=== PATIENT | male | born 1985 | race American Indian/Alaskan Native ===

== ENCOUNTER 2017-12-08 20:14 | Emergency (ER) | payer OTHER ==
[2017-12-08] MEDS ORDERED: BENADRYL PO ONE ×2 (20:50→21:05)
[2017-12-08] MEDS ORDERED: DECADRON ONE (20:51)
[2017-12-08] MEDS ORDERED: PEPCID ONE (20:51)
[2017-12-08] MEDS ORDERED: PEPCID PO ONE (21:07)
[2017-12-08] MEDS ORDERED: DECADRON IM ONE (21:07)
--- NOTE | 2017-12-09 01:49 | Emergency Department Report ---
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 Patient denies shortness of breath or chest pain patient states has intermittent only with exact generally resolved with prednisone and albuterol and emolient ED Past Medical Hx - Past Medical History Hx HIV: Yes Additional medical history: Obesity - Surgical History Past Surgical History?: No - Social History Smoking Status: Current Every Day Smoker Substance Use Type: None - Medications Home Medications: Home Medications Medication Instructions Recorded Confirmed Last Taken Type Dexamethasone [Decadron] 4 mg PO Q12H PRN #4 tablet 12/09/17 Unknown Rx EPINEPHrine [Epipen 2-Wilmer] 0.3 mg IJ PRN PRN #1 auto.injct 12/09/17 Unknown Rx Metoclopramide [Reglan] 10 mg PO ACHS #30 tablet 12/09/17 Unknown Rx Triamcinolone Aceton 0.1% (Nf) 1 applic TP BID #1 tube 12/09/17 Unknown Rx [Kenalog (NF)] diphenhydrAMINE [Benadryl CAP] 25 mg PO Q6HR PRN #30 capsule 12/09/17 Unknown Rx ED Review of Systems ROS: Stated complaint: ALLERGIC REACTION Other details as noted in HPI Constitutional: malaise. denies: chills, fever Eyes: denies: eye pain, eye discharge, vision change ENT: denies: ear pain, throat pain Respiratory: denies: cough, shortness of breath, wheezing Cardiovascular: denies: chest pain, palpitations Endocrine: no symptoms reported Gastrointestinal: denies: abdominal pain, nausea, diarrhea Genitourinary: denies: urgency, dysuria Musculoskeletal: denies: back pain, joint swelling, arthralgia Skin: rash, lesions, pruritus, other Neurological: denies: headache, weakness, paresthesias, abnormal gait, vertigo Psychiatric: auditory hallucinations, visual hallucinations, homicidal thoughts. denies: anxiety, depression, suicidal thoughts, other Hematological/Lymphatic: denies: easy bleeding, easy bruising Physical Exam - Physical Exam Vital Signs: Vital Signs 12/08/17 20:57 Temperature 98.7 F Pulse Rate 100 H Respiratory 18 Rate Blood Pressure 170/100 O2 Sat by Pulse 100 Oximetry General: pt is a/o x 3 with nad, no resp distress appear nontoxic Physical Exam: Mild hives to bilateral arms minimal pruritus . Midline airway is patent uvula is midline there's no exudate minimal swelling there is no back pain or shortness of breath is no chest wall tenderness no chills no fevers lungs are clear bilaterally no stridor no there is no respiratory distress ED Course Vital Signs 12/08/17 20:57 Temperature 98.7 F Pulse Rate 100 H Respiratory 18 Rate Blood Pressure 170/100 O2 Sat by Pulse 100 Oximetry - Reevaluation(s) Reevaluation #1: Benadryl ibuprofen 12/09/17 01:51 ED Medical Decision Making - Radiology Data Symptoms are improved with steroids and antihistamines plan DC the Decadron by mouth Pepcid by mouth Reglan by mouth patient initiated EpiPen patient will avoid contacts for known triggers with PCP as directed - Medical Decision Making This is a contact dermatitis plan Ativan patient given EpiPen teaching Decadron Benadryl Reglan patient will follow with PCP N2 to 3 days return to work upon clearance. Critical care attestation.: If time is entered above; I have spent that time in minutes in the direct care of this critically ill patient, excluding procedure time. ED Disposition Clinical Impression: Contact dermatitis Qualifiers: Contact dermatitis type: allergic Contact dermatitis trigger: other trigger Qualified Code(s): L23.89 - Allergic contact dermatitis due to other agents; L23.8 - Allergic contact dermatitis due to other agents Disposition: DC-01 TO HOME OR SELFCARE Is pt being admited?: No Does the pt Need Aspirin: No Condition: Good Instructions: Epinephrine (Injection) Prescriptions: Dexamethasone [Decadron] 4 mg PO Q12H PRN #4 tablet PRN Reason: allergic reaction diphenhydrAMINE [Benadryl CAP] 25 mg PO Q6HR PRN #30 capsule PRN Reason: itching allergies EPINEPHrine [Epipen 2-Wilmer] 0.3 mg IJ PRN PRN #1 auto.injct PRN Reason: severe allergic reaction Metoclopramide [Reglan] 10 mg PO ACHS #30 tablet Triamcinolone Aceton 0.1% (Nf) [Kenalog (NF)] 1 applic TP BID #1 tube Referrals: PRIMARY CARE, [Primary Care Provider] - 3-5 Days Forms: Work/School Release Form(ED) Time of Disposition: 02:18
[2017-12-09 01:57] VITALS: BP 139/93
== END 2017-12-09 02:40 | disposition home or self-care (01) ==
LOC: ED 20:14
DX: L25.9 Unspecified contact dermatitis, unspecified cause (principal); F17.200 Nicotine dependence, unspecified, uncomplicated; R44.0 Auditory hallucinations; R44.1 Visual hallucinations; Z21 Asymptomatic human immunodeficiency virus [HIV] infection status
CPT/HCPCS: 96372; 99282; J1100

== ENCOUNTER 2020-02-16 11:54 | Emergency (ER) | payer SELFPAY | END 2020-02-16 13:00 | disposition left against medical advice (07) | LOC: ED 11:54 | DX: M25.541 Pain in joints of right hand (principal); Z53.21 Procedure and treatment not carried out due to patient leaving prior to being seen by health care provider ==

== ENCOUNTER 2020-08-25 11:44 | Emergency (ER) | payer OTHER ==
[2020-08-25 11:49] VITALS: BP 137/101
[2020-08-25] MEDS ORDERED: KETOROLAC 60 MG/2 ML INJ IM ONE (13:53)
[2020-08-25] MEDS ORDERED: predniSONE 20 MG TAB PO ONE (13:53)
--- NOTE | 2020-08-25 15:44 | Emergency Department Report ---
ED Back Pain/Injury HPI - General Chief Complaint: Back Pain/Injury Stated Complaint: BACK PAIN Time Seen by Provider: 08/25/20 13:44 Source: patient Limitations: No Limitations - History of Present Illness Initial Comments: This is a 35-year-old male nontoxic, well nourished in appearance, no acute signs of distress presents to the ED with c/o of acute on chronic lower back pa in. Patient stated that the past 2 days he was barbecuing and moving/heavy lifting and developed this pain. Patient states has history of sciatica nerve pain which is similar symptoms as today. Patient states that pain radiates through to his left lower extremity. Patient denies any trauma. Denies any bladder or bowel instability. Patient denies any urinary symptoms. Denies any fever, chills, nausea, vomiting, headache, stiff neck, chest pain or shortness of breath. Patient denies any numbness or tingling. Denies any allergies. Denies significant past medical history. MD Complaint: back pain -: days(s) Similar Symptoms Previously: Yes Place: home Radiation: left leg Severity: mild Severity scale (0 -10): 8 Quality: aching Consistency: intermittent Improves With: immobilization, sitting upright Worsens With: movement, walking Context: while lifting, turning/twisting Associated Symptoms: denies other symptoms. denies: confusion, weakness, chest pain, numbness, difficulty walking, cough, difficulty urinating, diaphoresis, incontinence, fever/chills, constipation, headaches, abdominal pain, loss of appetite, malaise, nausea/vomiting, rash, seizure, shortness of breath, syncope - Related Data Previous Rx's Medication Instructions Recorded Last Taken Type EPINEPHrine [Epipen 2-Wilmer] 0.3 mg IJ PRN PRN #1 auto.injct 12/09/17 Unknown Rx Metoclopramide [Reglan] 10 mg PO ACHS #30 tablet 12/09/17 Unknown Rx Triamcinolone Aceton 0.1% (Nf) 1 applic TP BID #1 tube 12/09/17 Unknown Rx [Kenalog (NF)] dexAMETHasone [Decadron] 4 mg PO Q12H PRN #4 tablet 12/09/17 Unknown Rx diphenhydrAMINE [Benadryl CAP] 25 mg PO Q6HR PRN #30 capsule 12/09/17 Unknown Rx Cyclobenzaprine [Flexeril] 10 mg PO QHS PRN #10 tablet 08/25/20 Unknown Rx Naproxen 500 mg PO Q12H PRN #12 tablet 08/25/20 Unknown Rx Allergies Allergy/AdvReac Type Severity Reaction Status Date / Time No Known Allergies Allergy Unverified 12/08/17 21:05 ED Review of Systems ROS: Stated complaint: BACK PAIN Other details as noted in HPI Comment: All other systems reviewed and negative Constitutional: denies: chills, fever Eyes: denies: eye pain, eye discharge, vision change ENT: denies: ear pain, throat pain Respiratory: denies: cough, shortness of breath, wheezing Cardiovascular: denies: chest pain, palpitations Endocrine: no symptoms reported Gastrointestinal: denies: abdominal pain, nausea, diarrhea Genitourinary: denies: urgency, dysuria Musculoskeletal: back pain. denies: joint swelling, arthralgia Skin: denies: rash, lesions Neurological: denies: headache, weakness, paresthesias Psychiatric: denies: anxiety, depression Hematological/Lymphatic: denies: easy bleeding, easy bruising ED Past Medical Hx - Past Medical History Previous Medical History?: Yes Hx Hypertension: Yes Hx HIV: Yes Additional medical history: Obesity - Surgical History Past Surgical History?: No - Social History Smoking Status: Current Every Day Smoker Substance Use Type: None - Medications Home Medications: Home Medications Medication Instructions Recorded Confirmed Last Taken Type EPINEPHrine [Epipen 2-Wilmer] 0.3 mg IJ PRN PRN #1 auto.injct 12/09/17 Unknown Rx Metoclopramide [Reglan] 10 mg PO ACHS #30 tablet 12/09/17 Unknown Rx Triamcinolone Aceton 0.1% (Nf) 1 applic TP BID #1 tube 12/09/17 Unknown Rx [Kenalog (NF)] dexAMETHasone [Decadron] 4 mg PO Q12H PRN #4 tablet 12/09/17 Unknown Rx diphenhydrAMINE [Benadryl CAP] 25 mg PO Q6HR PRN #30 capsule 12/09/17 Unknown Rx Cyclobenzaprine [Flexeril] 10 mg PO QHS PRN #10 tablet 08/25/20 Unknown Rx Naproxen 500 mg PO Q12H PRN #12 tablet 08/25/20 Unknown Rx ED Physical Exam - General Limitations: No Limitations General appearance: alert, in no apparent distress - Head Head exam: Present: atraumatic, normocephalic - Eye Eye exam: Present: normal appearance - Neck Neck exam: Present: normal inspection, full ROM. Absent: lymphadenopathy - Respiratory Respiratory exam: Present: normal lung sounds bilaterally. Absent: respiratory distress, wheezes, rales, rhonchi, stridor, chest wall tenderness, accessory muscle use, decreased breath sounds, prolonged expiratory - Cardiovascular Cardiovascular Exam: Present: regular rate, normal rhythm, normal heart sounds. Absent: bradycardia, tachycardia, irregular rhythm, systolic murmur, diastolic murmur, rubs, gallop - GI/Abdominal GI/Abdominal exam: Present: soft, normal bowel sounds. Absent: distended, tenderness, guarding, rebound, rigid, diminished bowel sounds, mass, bruit, pulsatile mass - Extremities Exam Extremities exam: Present: normal inspection, full ROM, normal capillary refill. Absent: tenderness, pedal edema, joint swelling, calf tenderness - Back Exam Back exam: Present: normal inspection, full ROM, paraspinal tenderness (Left lumbar paraspinal). Absent: tenderness, CVA tenderness (R), CVA tenderness (L), muscle spasm, vertebral tenderness, rash noted - Expanded Back Exam Expanded Back exam: Absent: saddle anesthesia Back exam: Negative Straight Leg Raising: Left, Right - Neurological Exam Neurological exam: Present: alert, oriented X3, normal gait - Psychiatric Psychiatric exam: Present: normal affect, normal mood - Skin Skin exam: Present: warm, dry, intact, normal color. Absent: rash ED Course Vital Signs 08/25/20 08/25/20 11:48 11:49 Temperature 99.0 F Pulse Rate 88 Respiratory 20 Rate Blood Pressure 137/101 O2 Sat by Pulse 98 Oximetry - Reevaluation(s) Reevaluation #1: 08/25/20 15:46 Patient is speaking in full sentences with no signs of distress noted. ED Medical Decision Making - Medical Decision Making This is a 35-year-old male that presents with low back strain. Patient is stable was examined by me. There is no spinal tenderness. There is no cauda equina syndrome during examination. No bladder or bowel instability. Patient received Toradol 60 mg IM and prednisone in the ED which stated that his symptoms has resolved and subsided. Patient is discharged with muscle relaxant and naproxen. Patient was instructed not to operate any machinery while taking muscle relaxant as they cause her drowsiness. Patient was referred to Follow-up with a primary care doctor in 3-5 days or if symptoms worsen and continue return to emergency room as soon as possible. At time of discharge, the patient does not seem toxic or ill in appearance. No acute signs of distress noted. Patient agrees to discharge treatment plan of care. No further questions noted by the patient. This chart is dictated with using [employer] Critical care attestation.: If time is entered above; I have spent that time in minutes in the direct care of this critically ill patient, excluding procedure time. ED Disposition Clinical Impression: Low back strain Qualifiers: Encounter type: initial encounter Qualified Code(s): S39.012A - Strain of muscl e, fascia and tendon of lower back, initial encounter Disposition: TO HOME OR SELFCARE Is pt being admited?: No Does the pt Need Aspirin: No Condition: Stable Instructions: Cyclobenzaprine tablets, Lumbosacral Strain Additional Instructions: Follow-up with your primary care doctor in 3-5 days or if symptoms worsen such as bladder or bowel stability, chest pain, short of breath, numbness or tingling sensation in extremities, headache, dizziness, visual changes, nausea vomiting, or abdominal pain, return back to emergency room as was possible. Take naproxen and Flexeril as prescribed. Do not operate heavy machinery while taking Flexeril due to sedation Prescriptions: Cyclobenzaprine [Flexeril] 10 mg PO QHS PRN #10 tablet PRN Reason: Muscle Spasm Naproxen 500 mg PO Q12H PRN #12 tablet PRN Reason: Pain , Severe (7-10) Referrals: PRIMARY CAREMD [Primary Care Provider] - 3-5 Days EDITA RAZA MD [Staff Physician] - 3-5 Days Forms: Work/School Release Form(ED) Time of Disposition: 15:48
== END 2020-08-25 16:23 | disposition home or self-care (01) ==
LOC: ED 11:44
DX: S39.012A Strain of muscle, fascia and tendon of lower back, initial encounter (principal); I10 Essential (primary) hypertension; F17.200 Nicotine dependence, unspecified, uncomplicated; Z79.899 Other long term (current) drug therapy; Z21 Asymptomatic human immunodeficiency virus [HIV] infection status; X50.0XXA Overexertion from strenuous movement or load, initial encounter; Y93.89 Activity, other specified; Y92.89 Other specified places as the place of occurrence of the external cause; Y99.8 Other external cause status
CPT/HCPCS: 96372; 99282; J1885; J7512

== ENCOUNTER 2020-09-28 11:45 | Inpatient (IN) | payer OTHER ==
[2020-09-28 13:00] LABS: Alanine Aminotransferase 32 units/L (7-56); BUN/Creatinine Ratio 10; Basophils % (Auto) 0.2 % (0.0-1.8); Blood Urea Nitrogen 8 mg/dL (9-20); Eosinophils # (Auto) 0.1 K/mm3 (0.0-0.4); Eosinophils % (Auto) 1.8 % (0.0-4.3); Hematocrit 41.3 % (35.5-45.6); Hemoglobin 14.2 gm/dl (11.8-15.2); Hemolysis Index 1; Lymphocytes # (Auto) 0.7 K/mm3 (1.2-5.4); Lymphocytes % (Auto) 14.3 % (13.4-35.0); Mean Corpuscular HGB Conc 35 % (32-34); Mean Corpuscular Volume 93 fl (84-94); Monocytes # (Auto) 0.6 K/mm3 (0.0-0.8); Monocytes % (Auto) 11.3 % (0.0-7.3); Red Blood Count 4.42 M/mm3 (3.65-5.03); Red Cell Distribution Width 13.6 % (13.2-15.2)
[2020-09-28 13:01] LABS: Platelet Count 63 K/mm3 (140-440)
[2020-09-28 13:03] LABS: Bilirubin,Urine NEG (Negative); Blood,Urine NEG (Negative); Color,Urine Amber (Yellow); Mucus,Urine 3+ /HPF
[2020-09-28] MEDS ORDERED: MORPHINE 4 MG/1 ML INJ IV ONE (15:35)
[2020-09-28] MEDS ORDERED: ONDANSETRON 4 MG/2 ML INJ IV ONE (15:35)
[2020-09-28] MEDS ORDERED: SODIUM CHLORIDE 0.9% 1000 ML 1,000 ML IV ONE (15:35)
--- NOTE | 2020-09-28 16:05 | XRay Report ---
ABDOMEN 4 VIEW(S) INDICATION: Nausea with vomiting. COMPARISON: None available. FINDINGS: Bowel gas pattern: No significant abnormality. Free air: None seen. Stones: None seen. Chest: No acute findings. Additional Findings: No additional significant findings. IMPRESSION: 1. No acute findings. Signer Name: Abdoulaye Xie MD Signed: 09/28/2020 4:00 PM Workstation Name: [id number]
--- NOTE | 2020-09-28 17:31 | Emergency Department Report ---
ED Abdominal Pain HPI - General Chief Complaint: Abdominal Pain Stated Complaint: PAIN (R)SIDE x2days Time Seen by Provider: 09/28/20 15:29 Source: patient Mode of arrival: Ambulatory Limitations: No Limitations - History of Present Illness Initial Comments: This is a 35-year-old male nontoxic, well nourished in appearance, no acute signs of distress presents to the ED with c/o of nausea and vomiting and abdominal pain several days. Patient stated last vomiting was yesterday. Patient describes vomiting as food content and yellow gastric acid. Patient describes abdominal pain as cramping and aching with level of 8/10 RUQ with radiation to right flank. Patient denies chest pain, short of breath, fever, hemoptysis, blood in stool, chills, headache, stiff neck, numbness or tingling. Patient denies any diarrhea or constipation. Denies any blood in stool. Patient denies any recent travels. Patient denies any allergies or significant PMH. Patient stated is a daily alcohol drinker. MD Complaint: abdominal pain -: days(s) Location: RUQ Radiation: R flank Migration to: no migration Severity: mild Severity scale (0 -10): 8 Quality: cramping, aching Consistency: constant Improves With: nothing Worsens With: nothing Associated Symptoms: nausea, vomiting. denies: diarrhea, fever, chills, constipation, dysuria, hematemesis, hematochezia, melena, hematuria, anorexia, syncope - Related Data Previous Rx's Medication Instructions Recorded Last Taken Type EPINEPHrine [Epipen 2-Wilmer] 0.3 mg IJ PRN PRN #1 auto.injct 12/09/17 Unknown Rx Metoclopramide [Reglan] 10 mg PO ACHS #30 tablet 12/09/17 Unknown Rx Triamcinolone Aceton 0.1% (Nf) 1 applic TP BID #1 tube 12/09/17 Unknown Rx [Kenalog (NF)] dexAMETHasone [Decadron] 4 mg PO Q12H PRN #4 tablet 12/09/17 Unknown Rx diphenhydrAMINE [Benadryl CAP] 25 mg PO Q6HR PRN #30 capsule 12/09/17 Unknown Rx Cyclobenzaprine [Flexeril] 10 mg PO QHS PRN #10 tablet 08/25/20 Unknown Rx Naproxen 500 mg PO Q12H PRN #12 tablet 08/25/20 Unknown Rx Allergies Allergy/AdvReac Type Severity Reaction Status Date / Time No Known Allergies Allergy Unverified 12/08/17 21:05 ED Review of Systems ROS: Stated complaint: PAIN (R)SIDE x2days Other details as noted in HPI Constitutional: denies: chills, fever Eyes: denies: eye pain, eye discharge, vision change ENT: denies: ear pain, throat pain Respiratory: denies: cough, shortness of breath, wheezing Cardiovascular: denies: chest pain, palpitations Endocrine: no symptoms reported Gastrointestinal: abdominal pain, nausea, vomiting. denies: diarrhea, constipation, hematemesis, melena, hematochezia Genitourinary: denies: urgency, dysuria Musculoskeletal: denies: back pain, joint swelling, arthralgia Skin: denies: rash, lesions Neurological: denies: headache, weakness, paresthesias Psychiatric: denies: anxiety, depression Hematological/Lymphatic: denies: easy bleeding, easy bruising ED Past Medical Hx - Past Medical History Hx Hypertension: Yes Hx HIV: Yes Additional medical history: Obesity - Social History Smoking Status: Current Every Day Smoker Substance Use Type: None - Medications Home Medications: Home Medications Medication Instructions Recorded Confirmed Last Taken Type EPINEPHrine [Epipen 2-Wilmer] 0.3 mg IJ PRN PRN #1 auto.injct 12/09/17 Unknown Rx Metoclopramide [Reglan] 10 mg PO ACHS #30 tablet 12/09/17 Unknown Rx Triamcinolone Aceton 0.1% (Nf) 1 applic TP BID #1 tube 12/09/17 Unknown Rx [Kenalog (NF)] dexAMETHasone [Decadron] 4 mg PO Q12H PRN #4 tablet 12/09/17 Unknown Rx diphenhydrAMINE [Benadryl CAP] 25 mg PO Q6HR PRN #30 capsule 12/09/17 Unknown Rx Cyclobenzaprine [Flexeril] 10 mg PO QHS PRN #10 tablet 08/25/20 Unknown Rx Naproxen 500 mg PO Q12H PRN #12 tablet 08/25/20 Unknown Rx ED Physical Exam - General Limitations: No Limitations General appearance: alert, in no apparent distress - Head Head exam: Present: atraumatic, normocephalic - Eye Eye exam: Present: normal appearance - Neck Neck exam: Present: normal inspection, full ROM. Absent: lymphadenopathy - Respiratory Respiratory exam: Present: normal lung sounds bilaterally. Absent: respiratory distress, wheezes, rales, rhonchi, stridor, chest wall tenderness, accessory muscle use, decreased breath sounds, prolonged expiratory - Cardiovascular Cardiovascular Exam: Present: regular rate, normal rhythm, normal heart sounds. Absent: bradycardia, tachycardia, irregular rhythm, systolic murmur, diastolic murmur, rubs, gallop - GI/Abdominal GI/Abdominal exam: Present: soft, tenderness (RUQ), normal bowel sounds. Absent: distended, guarding, rebound, rigid, diminished bowel sounds - Extremities Exam Extremities exam: Present: normal inspection, full ROM - Back Exam Back exam: Present: normal inspection, full ROM. Absent: tenderness, CVA tenderness (R), CVA tenderness (L), muscle spasm, paraspinal tenderness, vertebr al tenderness, rash noted - Neurological Exam Neurological exam: Present: alert, oriented X3, normal gait - Psychiatric Psychiatric exam: Present: normal affect, normal mood - Skin Skin exam: Present: warm, dry, intact, normal color. Absent: rash ED Course Vital Signs 09/28/20 12:07 Temperature 98.2 F Pulse Rate 90 Respiratory 18 Rate Blood Pressure 163/114 [Right] O2 Sat by Pulse 99 Oximetry - Reevaluation(s) Reevaluation #1: 09/28/20 17:28 Patient is speaking in full sentences with no signs of distress noted. - Consultations Consultation #1: 09/28/20 20:22 Patient has been consulted with Ashli Preciado about patient history, physical exam, and labs/imaging studies and agrees to the ED plan of care and admission. Consultation #2: 09/28/20 21:20 Patient has been consulted with Dr. Garza about patient history, physical exam, and labs/imaging results and agrees for admission. Consultation #3: 09/28/20 21:22 Patient has been consulted with Dr. Andino about patient history, physical exam, and labs with imaging results and accepts patient to services. ED Medical Decision Making - Lab Data Result diagrams: 09/28/20 12:25 09/28/20 12:25 Lab Results 09/28/20 09/28/20 09/28/20 Range/Units 12:25 12:25 15:35 WBC 5.1 (4.5-11.0) K/mm3 RBC 4.42 (3.65-5.03) M/mm3 Hgb 14.2 (11.8-15.2) gm/dl Hct 41.3 (35.5-45.6) % MCV 93 (84-94) fl MCH 32 (28-32) pg MCHC 35 H (32-34) % RDW 13.6 (13.2-15.2) % Plt Count 63 L (140-440) K/mm3 Lymph % (Auto) 14.3 (13.4-35.0) % Morgan % (Auto) 11.3 H (0.0-7.3) % Eos % (Auto) 1.8 (0.0-4.3) % Baso % (Auto) 0.2 (0.0-1.8) % Lymph # (Auto) 0.7 L (1.2-5.4) K/mm3 [place] # (Auto) 0.6 (0.0-0.8) K/mm3 Eos # (Auto) 0.1 (0.0-0.4) K/mm3 Baso # (Auto) 0.0 (0.0-0.1) K/mm3 Seg Neutrophils % 72.4 H (40.0-70.0) % Seg Neutrophils # 3.7 (1.8-7.7) K/mm3 Sodium 135 L (137-145) mmol/L Potassium 3.6 (3.6-5.0) mmol/L Chloride 99.7 (98-107) mmol/L Carbon Dioxide 25 (22-30) mmol/L Anion Gap 14 mmol/L BUN 8 L (9-20) mg/dL Creatinine 0.8 (0.8-1.3) mg/dL Estimated GFR > 60 ml/min BUN/Creatinine Ratio 10 % Glucose 85 (75-100) mg/dL Calcium 9.0 (8.4-10.2) mg/dL Total Bilirubin 1.40 H (0.1-1.2) mg/dL AST 24 (5-40) units/L ALT 32 (7-56) units/L Alkaline Phosphatase 118 (35-129) units/L Total Protein 8.1 (6.3-8.2) g/dL Albumin 4.0 (3.9-5) g/dL Albumin/Globulin Ratio 1.0 % Lipase 517 H (13-60) units/L Urine Color (Yellow) Urine Turbidity (Clear) Urine pH (5.0-7.0) Ur Specific [place] (1.003-1.030) Urine Protein (Negative) mg/dL Urine Glucose (UA) (Negative) mg/dL Urine Ketones (Negative) mg/dL Urine Blood (Negative) Urine Nitrite (Negative) Urine Bilirubin (Negative) Urine Urobilinogen (<2.0) mg/dL Ur Leukocyte Esterase (Negative) Urine WBC (Auto) (0.0-6.0) /HPF Urine RBC (Auto) (0.0-6.0) /HPF U Epithel Cells (Auto) (0-13.0) /HPF Urine Mucus /HPF 09/28/20 Range/Units Unknown WBC (4.5-11.0) K/mm3 RBC (3.65-5.03) M/mm3 Hgb (11.8-15.2) gm/dl Hct (35.5-45.6) % MCV (84-94) fl MCH (28-32) pg MCHC (32-34) % RDW (13.2-15.2) % Plt Count (140-440) K/mm3 Lymph % (Auto) (13.4-35.0) % Morgan % (Auto) (0.0-7.3) % Eos % (Auto) (0.0-4.3) % Baso % (Auto) (0.0-1.8) % Lymph # (Auto) (1.2-5.4) K/mm3 Morgan # (Auto) (0.0-0.8) K/mm3 Eos # (Auto) (0.0-0.4) K/mm3 Baso # (Auto) (0.0-0.1) K/mm3 Seg Neutrophils % (40.0-70.0) % Seg Neutrophils # (1.8-7.7) K/mm3 Sodium (137-145) mmol/L Potassium (3.6-5.0) mmol/L Chloride (98-107) mmol/L Carbon Dioxide (22-30) mmol/L Anion Gap mmol/L BUN (9-20) mg/dL Creatinine (0.8-1.3) mg/dL Estimated GFR ml/min BUN/Creatinine Ratio % Glucose (75-100) mg/dL Calcium (8.4-10.2) mg/dL Total Bilirubin (0.1-1.2) mg/dL AST (5-40) units/L ALT (7-56) units/L Alkaline Phosphatase (35-129) units/L Total Protein (6.3-8.2) g/dL Albumin (3.9-5) g/dL Albumin/Globulin Ratio % Lipase (13-60) units/L Urine Color [place] (Yellow) Urine Turbidity Clear (Clear) Urine pH 5.0 (5.0-7.0) Ur Specific [place] 1.024 (1.003-1.030) Urine Protein 100 mg/dl (Negative) mg/dL Urine Glucose (UA) Neg (Negative) mg/dL Urine Ketones Neg (Negative) mg/dL Urine Blood Neg (Negative) Urine Nitrite Neg (Negative) Urine Bilirubin Neg (Negative) Urine Urobilinogen 2.0 (<2.0) mg/dL Ur Leukocyte Esterase Neg (Negative) Urine WBC (Auto) 1.0 (0.0-6.0) /HPF Urine RBC (Auto) 2.0 (0.0-6.0) /HPF U Epithel Cells (Auto) 1.0 (0-13.0) /HPF Urine Mucus 3+ /HPF - Radiology Data [facility] [address] [place] [address] XRay Report Signed Patient: ROBERTO IBANEZ MR#: [id number] : 1985 Acct:[id number] Age/Sex: 35 / M ADM Date: 09/28/20 Loc: ED Attending Dr: Ordering Physician: ALEKSEY BOWLING NP Date of Service: 09/28/20 Procedure(s): XR abd series w cxr 1V Accession Number(s): [id number] cc: ALEKSEY BOWLING NP Fluoro Time In Minutes: ABDOMEN 4 VIEW(S) INDICATION: Nausea with vomiting. COMPARISON: None available. FINDINGS: Bowel gas pattern: No significant abnormality. Free air: None seen. Stones: None seen. Chest: No acute findings. Additional Findings: No additional significant findings. IMPRESSION: 1. No acute findings. Signer Name: Abdoulaye Xie MD Signed: 09/28/2020 4:00 PM Workstation Name: [id number] Transcribed By: SUSAN Dictated By: Abdoulaye Xie MD Electronically Authenticated By: Abdoulaye Xie MD Signed Date/Time: 09/28/201599 DD/ 58 TD/TT: [facility] [address] [place] [address] Ultrasound Report Signed Patient: ROBERTO IBANEZ MR#: [id number] : 1985 Acct:[id number] Age/Sex: 35 / M ADM Date: 09/28/20 Loc: ED Attending Dr: Ordering Physician: ALEKSEY BOWLING NP Date of Service: 09/28/20 Procedure(s): US abdomen complete Accession Number(s): [id number] cc: ALEKSEY BOWLING NP ULTRASOUND ABDOMEN, LIMITED INDICATION: Right upper quadrant pain. COMPARISON: Acute abdominal series performed earlier today. FINDINGS: Pancreas: Not well-visualized. Liver: No significant abnormality. Gallbladder: Mildly distended with mild wall thickening measuring up to 4.5 mm. No shadowing stones. Positive sonographic Kinsey sign. Bile ducts: The common bile duct is at the upper normal limit of size, measuring 7.2 mm. No choledocholithiasis. No intrahepatic biliary ductal dilatation. Free fluid: None. Additional Findings: None. IMPRESSION: 1. Positive sonographic Kinsey sign with mild gallbladder wall thickening and mild gallbladder distention without visualization of stones, suggesting acute acalculous cholecystitis. 2. CBD at the upper normal limit of transverse diameter without sonographic evidence of choledocholithiasis. Signer Name: Abdoulaye Xie MD Signed: 09/28/2020 7:56 PM Workstation Name: [id number] Transcribed By: SUSAN Dictated By: Abdoulaye Xie MD Electronically Authenticated By: Abdoulaye Xie MD Signed Date/Time: 09/28/201955 DD/ 51 TD/TT: - Medical Decision Making 35-year-old male that presents with acute cholecystitis and pancreatitis. Patient stable and was examined by me. Patient received resuscitation in ER. Admitted with hospitalist. Consulted with surgery. At time of admission, the patient does not seem toxic or ill in appearance. No acute signs of distress noted. Patient agrees to admission treatment plan of care. No further questions noted by the patient. Critical care attestation.: If time is entered above; I have spent that time in minutes in the direct care o f this critically ill patient, excluding procedure time. ED Disposition Clinical Impression: Acute cholecystitis Acute pancreatitis Qualifiers: Pancreatitis type: alcohol induced Acute pancreatitis complication: unspecified Qualified Code(s): K85.20 - Alcohol induced acute pancreatitis without necrosis or infection Disposition: OP ADMIT IP TO THIS HOSP Is pt being admited?: Yes Condition: Stable Time of Disposition: 21:24
--- NOTE | 2020-09-28 20:00 | Ultrasound Report ---
ULTRASOUND ABDOMEN, LIMITED INDICATION: Right upper quadrant pain. COMPARISON: Acute abdominal series performed earlier today. FINDINGS: Pancreas: Not well-visualized. Liver: No significant abnormality. Gallbladder: Mildly distended with mild wall thickening measuring up to 4.5 mm. No shadowing stones. Positive sonographic Kinsey sign. Bile ducts: The common bile duct is at the upper normal limit of size, measuring 7.2 mm. No choledoch olithiasis. No intrahepatic biliary ductal dilatation. Free fluid: None. Additional Findings: None. IMPRESSION: 1. Positive sonographic Kinsey sign with mild gallbladder wall thickening and mild gallbladder disten tion without visualization of stones, suggesting acute acalculous cholecystitis. 2. CBD at the upper normal limit of transverse diameter without sonographic evidence of choledocholit hiasis. Signer Name: Abdoulaye Xie MD Signed: 09/28/2020 7:56 PM Workstation Name: [id number]
[2020-09-28] MEDS ORDERED: metroNIDAZOLE/NS 500 MG/100 ML 500 MG/100 ML BAG IV ONE (20:22)
[2020-09-28] MEDS ORDERED: ALBUTEROL 2.5 MG/3 ML NEBU IH PRN (21:34)
[2020-09-28] MEDS ORDERED: LORazepam 2 MG/ML VIAL IV PRN (21:34)
[2020-09-28] MEDS ORDERED: MORPHINE 4 MG/1 ML INJ IV PRN (21:34)
[2020-09-28] MEDS ORDERED: ONDANSETRON 4 MG/2 ML INJ IV PRN (21:34)
[2020-09-28] MEDS ORDERED: ACETAMINOPHEN 325 MG TAB PO PRN (21:34)
[2020-09-28] MEDS ORDERED: MORPHINE 2 MG/1 ML INJ IV PRN (21:34)
[2020-09-28] MEDS ORDERED: EPINEPHRINE 0.3 MG/0.3 ML IJ PRN (21:37)
[2020-09-28] MEDS ORDERED: DEXAMETHASONE 4 MG TAB PO PRN (21:37)
[2020-09-28] MEDS ORDERED: diphenhydrAMINE 25 MG CAP PO PRN (21:37)
[2020-09-28] MEDS ORDERED: AUTO INJCT IJ PRN (21:37)
--- NOTE | 2020-09-28 21:43 | History and Physical Report ---
History of Present Illness Date of examination: 09/28/20 Date of admission: 09/28/20 Chief complaint: Abdominal pain History of present illness: 35-year-old male with past medical history of hypertension, HIV alcohol abuse was brought to the emergency room because of nausea and vomiting and abdominal pain several days. Abdominal pain is cramping like an aching-like 8/10 right upper quadrant radiates to the right flank. patient stated last vomiting was yesterday. Patient describes vomiting as food content and yellow gastric acid. Patient denies chest pain, short of breath, fever, hemoptysis, blood in stool, chills, headache, stiff neck, numbness or tingling. In the emergency room patient lipase is 517. Abdominal ultrasound no showed positive sonographic Kinsey sign with mild gallbladder wall thickening and mild gallbladder distention without visualization of the stone suggesting acute acalculous cholecystitis. CBD at the upper normal limit of transverse diameter without sonographic evidence of choledocholithiasis Surgery is consulted and med rec is done Past History Past Medical History: HIV/AIDS, hypertension, other (Obesity alcohol abuse) Medications and Allergies Allergies Allergy/AdvReac Type Severity Reaction Status Date / Time No Known Allergies Allergy Unverified 12/08/17 21:05 Home Medications Medication Instructions Recorded Confirmed Last Taken Type EPINEPHrine [Epipen 2-Wilmer] 0.3 mg IJ PRN PRN #1 auto.injct 12/09/17 Unknown Rx Metoclopramide [Reglan] 10 mg PO ACHS #30 tablet 12/09/17 Unknown Rx Triamcinolone Aceton 0.1% (Nf) 1 applic TP BID #1 tube 12/09/17 Unknown Rx [Kenalog (NF)] dexAMETHasone [Decadron] 4 mg PO Q12H PRN #4 tablet 12/09/17 Unknown Rx diphenhydrAMINE [Benadryl CAP] 25 mg PO Q6HR PRN #30 capsule 12/09/17 Unknown Rx Cyclobenzaprine [Flexeril] 10 mg PO QHS PRN #10 tablet 08/25/20 Unknown Rx Naproxen 500 mg PO Q12H PRN #12 tablet 08/25/20 Unknown Rx Active Meds: Active Medications Acetaminophen (Acetaminophen 325 Mg Tab) 650 mg PO Q4H PRN PRN Reason: Pain MILD(1-3)/Fever >100.5/SEBASTIAN Albuterol (Albuterol 2.5 Mg/3 Ml Nebu) 2.5 mg IH Q4HRT PRN PRN Reason: Shortness Of Breath Albuterol/Ipratropium (Ipratropium/Albuterol Sulfate 3 Ml Ampul.Neb) 1 ampul IH Q6HRT [facility] Famotidine (Famotidine 20 Mg/2 Ml Inj) 20 mg IV BID [facility] Levofloxacin/Dextrose (Levaquin 750mg/150ml) 750 mg in 150 mls @ 100 mls/hr IV ONCE ONE; Protocol Stop: 09/28/20 21:51 Dextrose/Sodium Chloride (D5/0.45ns) 1,000 mls @ 100 mls/hr IV DIRECT SHARON Morphine Sulfate (Morphine 2 Mg/1 Ml Inj) 2 mg IV Q4H PRN PRN Reason: Pain, Moderate (4-6) Ondansetron HCl (Ondansetron 4 Mg/2 Ml Inj) 4 mg IV Q8H PRN PRN Reason: Nausea And Vomiting Sodium Chloride (Sodium Chloride 0.9% 10 Ml Flush Syringe) 10 ml IV BID [facility] Sodium Chloride (Sodium Chloride 0.9% 10 Ml Flush Syringe) 10 ml IV PRN PRN PRN Reason: LINE FLUSH Review of Systems Gastrointestinal: abdominal pain, nausea, vomiting Exam - Constitutional Vitals: Temp Pulse Resp BP Pulse Ox 98.2 F 90 18 163/114 99 09/28/20 12:07 09/28/20 12:07 09/28/20 12:07 09/28/20 12:07 09/28/20 12:07 General appearance: Present: no acute distress, well-nourished - EENT Eyes: Present: PERRL ENT: hearing intact, clear oral mucosa - Neck Neck: Present: supple, normal ROM - Respiratory Respiratory effort: normal Respiratory: bilateral: CTA - Cardiovascular Heart Sounds: Present: S1 & S2. Absent: rub, click - Extremities Extremities: pulses symmetrical, No edema Peripheral Pulses: within normal limits - Abdominal General gastrointestinal: Present: soft, tender, non-distended, normal bowel sounds Localized gastrointestinal: tender: RUQ Male genitourinary: Present: normal - Integumentary Integumentary: Present: clear, warm, dry - Musculoskeletal Musculoskeletal: gait normal, strength equal bilaterally - Psychiatric Psychiatric: appropriate mood/affect, intact judgment & insight - Neurologic Neurologic: CNII-XII intact, moves all extremities Results - Labs CBC & Chem 7: 09/28/20 12:25 09/28/20 12:25 Labs: Laboratory Last Values WBC 5.1 K/mm3 (4.5-11.0) 09/28/20 12:25 RBC 4.42 M/mm3 (3.65-5.03) 09/28/20 12:25 Hgb 14.2 gm/dl (11.8-15.2) 09/28/20 12:25 Hct 41.3 % (35.5-45.6) 09/28/20 12:25 MCV 93 fl (84-94) 09/28/20 12:25 MCH 32 pg (28-32) 09/28/20 12:25 MCHC 35 % (32-34) H 09/28/20 12:25 RDW 13.6 % (13.2-15.2) 09/28/20 12:25 Plt Count 63 K/mm3 (140-440) L 09/28/20 12:25 Lymph % (Auto) 14.3 % (13.4-35.0) 09/28/20 12:25 [place] % (Auto) 11.3 % (0.0-7.3) H 09/28/20 12:25 Eos % (Auto) 1.8 % (0.0-4.3) 09/28/20 12:25 Baso % (Auto) 0.2 % (0.0-1.8) 09/28/20 12:25 Lymph # (Auto) 0.7 K/mm3 (1.2-5.4) L 09/28/20 12:25 [place] # (Auto) 0.6 K/mm3 (0.0-0.8) 09/28/20 12:25 Eos # (Auto) 0.1 K/mm3 (0.0-0.4) 09/28/20 12:25 Baso # (Auto) 0.0 K/mm3 (0.0-0.1) 09/28/20 12:25 Seg Neutrophils % 72.4 % (40.0-70.0) H 09/28/20 12:25 Seg Neutrophils # 3.7 K/mm3 (1.8-7.7) 09/28/20 12:25 Sodium 135 mmol/L (137-145) L 09/28/20 12:25 Potassium 3.6 mmol/L (3.6-5.0) 09/28/20 12:25 Chloride 99.7 mmol/L (98-107) 09/28/20 12:25 Carbon Dioxide 25 mmol/L (22-30) 09/28/20 12:25 Anion Gap 14 mmol/L 09/28/20 12:25 BUN 8 mg/dL (9-20) L 09/28/20 12:25 Creatinine 0.8 mg/dL (0.8-1.3) 09/28/20 12:25 Estimated GFR > 60 ml/min 09/28/20 12:25 BUN/Creatinine Ratio 10 % 09/28/20 12:25 Glucose 85 mg/dL (75-100) 09/28/20 12:25 Calcium 9.0 mg/dL (8.4-10.2) 09/28/20 12:25 Total Bilirubin 1.40 mg/dL (0.1-1.2) H 09/28/20 12:25 AST 24 units/L (5-40) 09/28/20 12:25 ALT 32 units/L (7-56) 09/28/20 12:25 Alkaline Phosphatase 118 units/L (35-129) 09/28/20 12:25 Total Protein 8.1 g/dL (6.3-8.2) 09/28/20 12:25 Albumin 4.0 g/dL (3.9-5) 09/28/20 12:25 Albumin/Globulin Ratio 1.0 % 09/28/20 12:25 Lipase 517 units/L (13-60) H 09/28/20 15:35 Urine Color Juli[place] (Yellow) 09/28/20 Unknown Urine Turbidity Clear (Clear) 09/28/20 Unknown Urine pH 5.0 (5.0-7.0) 09/28/20 Unknown Ur Specific [place] 1.024 (1.003-1.030) 09/28/20 Unknown Urine Protein 100 mg/dl mg/dL (Negative) 09/28/20 Unknown Urine Glucose (UA) Neg mg/dL (Negative) 09/28/20 Unknown Urine Ketones Neg mg/dL (Negative) 09/28/20 Unknown Urine Blood Neg (Negative) 09/28/20 Unknown Urine Nitrite Neg (Negative) 09/28/20 Unknown Urine Bilirubin Neg (Negative) 09/28/20 Unknown Urine Urobilinogen 2.0 mg/dL (<2.0) 09/28/20 Unknown Ur Leukocyte Esterase Neg (Negative) 09/28/20 Unknown Urine WBC (Auto) 1.0 /HPF (0.0-6.0) 09/28/20 Unknown Urine RBC (Auto) 2.0 /HPF (0.0-6.0) 09/28/20 Unknown U Epithel Cells (Auto) 1.0 /HPF (0-13.0) 09/28/20 Unknown Urine Mucus 3+ /HPF 09/28/20 Unknown - Imaging and Cardiology US - abdomen: report reviewed Assessment and Plan VTE prophylaxis?: Chemical Plan of care discussed with patient/family: Yes - Patient Problems (1) Acute cholecystitis Current Visit: Yes Status: Acute Plan to address problem: Admit the patient to the medical floor. N.p.o. D5 half-normal saline at the rate of 100 cc/h. Pepcid 20 mg IV every 12 hours. Zosyn 4.5 g IV every 8 hours. Zofran 4 mg IV every 6 hours as needed. Will consult surgery for evaluation. Recheck CBC CMP in the morning (2) Acute pancreatitis Current Visit: Yes Status: Acute Qualifiers: Pancreatitis type: alcohol induced Acute pancreatitis complication: unspecified Qualified Code(s): K85.20 - Alcohol induced acute pancreatitis without necrosis or infection Plan to address problem: N.p.o. D5 half-normal saline at the rate of 100 cc/h. Pepcid 20 mg IV every 12 hours. Zosyn 4.5 g IV every 8 hours. Zofran 4 mg IV every 6 hours as needed. Will consult surgery for evaluation. Recheck CBC CMP in the morning (3) Hypertension Current Visit: Yes Status: Acute Plan to address problem: Hydralazine 10 mg IV every 6 hours as needed. We will continue the home medication. Monitor blood pressure closely (4) Tobacco abuse Current Visit: Yes Status: Acute Plan to address problem: We counseled the patient quit his smoking. Nicotine patch 7 mg to the skin daily (5) Alcohol abuse Current Visit: Yes Status: Acute Plan to address problem: Counseled the patient regarding quit drinking. We put the patient on CIWA protocol. We also put the patient on banana bag daily (6) DVT prophylaxis Current Visit: Yes Status: Acute Plan to address problem: Heparin 5000 units subcu every 8 hours for DVT prophylaxis. Pepcid 20 mg IV every 12 hours for GI prophylaxis. Patient is a full code
[2020-09-28] MEDS ORDERED: EPINEPHrine/PF 1 MG/1 ML INJ IV PRN (21:48)
[2020-09-28] MEDS ORDERED: hydrALAZINE 20 MG/1 ML INJ IV PRN (21:49)
[2020-09-28] MEDS ORDERED: THIAMINE 100 MG, FOLIC ACID 1 MG, MULTIPLE VITAMIN INJ, ADULT 10 ML in SODIUM CHLORIDE ... IV ONE (21:49)
[2020-09-28] MEDS ORDERED: D5W/0.45% NACL 1,000 ML IV SCH (22:00)
[2020-09-28] MEDS ORDERED: TRIAMCINOLONE ACETON 0.1% TP SCH (22:00)
[2020-09-28] MEDS: FAMOTIDINE 20 MG/2 ML INJ IV SCH (23:07)
[2020-09-28] MEDS: HEPARIN 5,000 UNIT/1 ML VIAL SUB-Q SCH (23:07)
[2020-09-29] MEDS: PIPERACIL/TAZOBACTA 4.5/NS 100 4.5 GM/100 ML VIAL IV SCH ×4 (00:03→21:48)
[2020-09-29] MEDS: IPRATROPIUM/ALBUTEROL SULFATE 3 ML AMPUL.NEB IH SCH ×4 (03:13→21:02)
[2020-09-29 05:24] LABS: Basophils % (Auto) 0.2 % (0.0-1.8); Eosinophils # (Auto) 0.1 K/mm3 (0.0-0.4); Eosinophils % (Auto) 2.3 % (0.0-4.3); Hematocrit 37.6 % (35.5-45.6); Hemoglobin 12.7 gm/dl (11.8-15.2); Lymphocytes # (Auto) 0.7 K/mm3 (1.2-5.4); Lymphocytes % (Auto) 18.8 % (13.4-35.0); Mean Corpuscular HGB Conc 34 % (32-34); Mean Corpuscular Volume 95 fl (84-94); Monocytes # (Auto) 0.4 K/mm3 (0.0-0.8); Monocytes % (Auto) 11.2 % (0.0-7.3); Red Blood Count 3.97 M/mm3 (3.65-5.03); Red Cell Distribution Width 13.2 % (13.2-15.2)
[2020-09-29 05:30] LABS: Platelet Count 50 K/mm3 (140-440)
[2020-09-29 05:36] LABS: Alanine Aminotransferase 25 units/L (7-56); Albumin 3.4 g/dL (3.9-5); BUN/Creatinine Ratio 10; Blood Urea Nitrogen 8 mg/dL (9-20); Calcium 8.8 mg/dL (8.4-10.2); Hemolysis Index 9
[2020-09-29] MEDS: TRIAMCINOLONE 0.1% CREAM 15 GM TP SCH ×3 (05:57→21:49)
[2020-09-29] MEDS: HEPARIN 5,000 UNIT/1 ML VIAL SUB-Q SCH ×3 (06:04→21:49)
--- NOTE | 2020-09-29 09:31 | Consultation ---
History of Present Illness Consult date: 09/29/20 - History of present illness History of present illness: 35-year-old male presented to the emergency room with acute 2 to 3-day onset of right upper quadrant abdominal pain. Patient says he never felt this pain before, and had one episode of nausea and vomiting. Patient says that his pain is currently better and denies any nausea vomiting, and he said that he would like to eat. Patient had an ultrasound that showed no gallstones but patient had a positive Kinsey's sign. Patient has elevated lipase consistent with pancreatitis, and a HIDA scan that was negative for cholecystitis but positive for biliary dyskinesia. Patient admits to heavy drinking and smoking on a daily basis. Past History Past Medical History: HIV/AIDS, hypertension, other (Obesity alcohol abuse) Past Surgical History: No surgical history Social history: smoking, alcohol abuse Medications and Allergies Allergies Allergy/AdvReac Type Severity Reaction Status Date / Time No Known Allergies Allergy Unverified 12/08/17 21:05 Home Medications Medication Instructions Recorded Confirmed Last Taken Type EPINEPHrine [Epipen 2-Wilmer] 0.3 mg IJ PRN PRN #1 auto.injct 12/09/17 Unknown Rx Metoclopramide [Reglan] 10 mg PO ACHS #30 tablet 12/09/17 Unknown Rx Triamcinolone Aceton 0.1% (Nf) 1 applic TP BID #1 tube 12/09/17 Unknown Rx [Kenalog (NF)] dexAMETHasone [Decadron] 4 mg PO Q12H PRN #4 tablet 12/09/17 Unknown Rx diphenhydrAMINE [Benadryl CAP] 25 mg PO Q6HR PRN #30 capsule 12/09/17 Unknown Rx Cyclobenzaprine [Flexeril] 10 mg PO QHS PRN #10 tablet 08/25/20 Unknown Rx Naproxen 500 mg PO Q12H PRN #12 tablet 08/25/20 Unknown Rx Active Meds: Active Medications Acetaminophen (Acetaminophen 325 Mg Tab) 650 mg PO Q4H PRN PRN Reason: Pain MILD(1-3)/Fever >100.5/SEBASTIAN Albuterol (Albuterol 2.5 Mg/3 Ml Nebu) 2.5 mg IH Q4HRT PRN PRN Reason: Shortness Of Breath Albuterol/Ipratropium (Ipratropium/Albuterol Sulfate 3 Ml Ampul.Neb) 1 ampul IH Q6HRT [facility] Last Admin: 09/29/20 03:13 Dose: 1 ampul Documented by: Dexamethasone (Dexamethasone 4 Mg Tab) 4 mg PO Q12H PRN PRN Reason: allergic reaction Diphenhydramine HCl (Diphenhydramine 25 Mg Cap) 25 mg PO Q6HR PRN PRN Reason: itching allergies Epinephrine HCl (Epinephrine/Pf 1 Mg/1 Ml Inj) 0.3 mg IV PRN PRN PRN Reason: Severe allergic reaction Famotidine (Famotidine 20 Mg/2 Ml Inj) 20 mg IV BID [facility] Last Admin: 09/28/20 23:07 Dose: 20 mg Documented by: Heparin Sodium (Porcine) (Heparin 5,000 Unit/1 Ml Vial) 5,000 unit SUB-Q Q8HR [facility] Last Admin: 09/29/20 06:04 Dose: 5,000 unit Documented by: Hydralazine HCl (Hydralazine 20 Mg/1 Ml Inj) 10 mg IV Q6H PRN PRN Reason: Blood Pressure Dextrose/Sodium Chloride (D5/0.45ns) 1,000 mls @ 100 mls/hr IV DIRECT [facility] Piperacillin Sod/Tazobactam Sod (Zosyn/Ns 4.5gm/100ml) 4.5 gm in 100 mls @ 200 mls/hr IV Q8H [facility]; Protocol Last Admin: 09/29/20 06:00 Dose: 200 mls/hr Documented by: Lorazepam (Lorazepam 2 Mg/Ml Vial) 2 mg IV Q1H PRN PRN Reason: CIWA-Ar 8-15 Morphine Sulfate (Morphine 2 Mg/1 Ml Inj) 2 mg IV Q4H PRN PRN Reason: Pain, Moderate (4-6) Ondansetron HCl (Ondansetron 4 Mg/2 Ml Inj) 4 mg IV Q8H PRN PRN Reason: Nausea And Vomiting Sodium Chloride (Sodium Chloride 0.9% 10 Ml Flush Syringe) 10 ml IV BID [facility] Last Admin: 09/28/20 23:08 Dose: 10 ml Documented by: Sodium Chloride (Sodium Chloride 0.9% 10 Ml Flush Syringe) 10 ml IV PRN PRN PRN Reason: LINE FLUSH Triamcinolone Acetonide (Triamcinolone 0.1% Cream 15 Gm) 1 applic TP BID SHARON Last Admin: 09/29/20 05:57 Dose: Not Given Documented by: Review of Systems All systems: negative - Cardiovascular no chest pain - Respiratory no cough - Gastrointestinal abdominal pain, constipation Exam Vital Signs Temp Pulse Resp BP Pulse Ox 98.2 F 90 18 163/114 99 09/28/20 12:07 09/28/20 12:07 09/28/20 12:07 09/28/20 12:07 09/28/20 12:07 - General physical appearance Positive: well developed, no distress, no pain - Respiratory Positive: normal expansion, normal respiratory effort - Cardiovascular Heart Sounds: Present: S1 & S2 - Extremities Extremities: no ischemia - Abdomen Abdomen: Present: soft. Absent: guarding, rigid (Obese, tender to palpation right upper quadrant) Results - Labs 09/29/20 03:50 09/29/20 03:50 Abnormal lab results 09/28/20 09/28/20 09/28/20 Range/Units 12:25 12:25 15:35 WBC (4.5-11.0) K/mm3 MCV (84-94) fl MCHC 35 H (32-34) % Plt Count 63 L (140-440) K/mm3 [place] % (Auto) 11.3 H (0.0-7.3) % Lymph # (Auto) 0.7 L (1.2-5.4) K/mm3 Seg Neutrophils % 72.4 H (40.0-70.0) % Sodium 135 L (137-145) mmol/L BUN 8 L (9-20) mg/dL Total Bilirubin 1.40 H (0.1-1.2) mg/dL Albumin (3.9-5) g/dL Lipase 517 H (13-60) units/L 09/29/20 09/29/20 Range/Units 03:50 03:50 WBC 4.0 L (4.5-11.0) K/mm3 MCV 95 H (84-94) fl MCHC (32-34) % Plt Count 50 L (140-440) K/mm3 [place] % (Auto) 11.2 H (0.0-7.3) % Lymph # (Auto) 0.7 L (1.2-5.4) K/mm3 Seg Neutrophils % (40.0-70.0) % Sodium (137-145) mmol/L BUN 8 L (9-20) mg/dL Total Bilirubin (0.1-1.2) mg/dL Albumin 3.4 L (3.9-5) g/dL Lipase (13-60) units/L Diabetes panel 09/28/20 09/29/20 Range/Units 12:25 03:50 Sodium 135 L 139 (137-145) mmol/L Potassium 3.6 3.6 (3.6-5.0) mmol/L Chloride 99.7 102.5 (98-107) mmol/L Carbon Dioxide 25 25 (22-30) mmol/L BUN 8 L 8 L (9-20) mg/dL Creatinine 0.8 0.8 (0.8-1.3) mg/dL Glucose 85 86 (75-100) mg/dL Calcium 9.0 8.8 (8.4-10.2) mg/dL AST 24 23 (5-40) units/L ALT 32 25 (7-56) units/L Alkaline Phosphatase 118 100 (35-129) units/L Total Protein 8.1 7.0 (6.3-8.2) g/dL Albumin 4.0 3.4 L (3.9-5) g/dL Calcium panel 09/28/20 09/28/20 09/29/20 Range/Units 12:25 21:45 03:50 Calcium 9.0 8.8 (8.4-10.2) mg/dL Phosphorus 3.40 (2.5-4.5) mg/dL Albumin 4.0 3.4 L (3.9-5) g/dL Pituitary panel 09/28/20 09/29/20 Range/Units 12:25 03:50 Sodium 135 L 139 (137-145) mmol/L Potassium 3.6 3.6 (3.6-5.0) mmol/L Chloride 99.7 102.5 (98-107) mmol/L Carbon Dioxide 25 25 (22-30) mmol/L BUN 8 L 8 L (9-20) mg/dL Creatinine 0.8 0.8 (0.8-1.3) mg/dL Glucose 85 86 (75-100) mg/dL Calcium 9.0 8.8 (8.4-10.2) mg/dL Adrenal panel 09/28/20 09/29/20 Range/Units 12:25 03:50 Sodium 135 L 139 (137-145) mmol/L Potassium 3.6 3.6 (3.6-5.0) mmol/L Chloride 99.7 102.5 (98-107) mmol/L Carbon Dioxide 25 25 (22-30) mmol/L BUN 8 L 8 L (9-20) mg/dL Creatinine 0.8 0.8 (0.8-1.3) mg/dL Glucose 85 86 (75-100) mg/dL Calcium 9.0 8.8 (8.4-10.2) mg/dL Total Bilirubin 1.40 H 1.20 (0.1-1.2) mg/dL AST 24 23 (5-40) units/L ALT 32 25 (7-56) units/L Alkaline Phosphatase 118 100 (35-129) units/L Total Protein 8.1 7.0 (6.3-8.2) g/dL Albumin 4.0 3.4 L (3.9-5) g/dL - Imaging US - abdomen: report reviewed, image reviewed Assessment and Plan 35-year-old male with acute pancreatitis, and biliary dyskinesia. Patient is afebrile and stable with normal white blood cell count level. Discussed with patient at length that his abdominal symptoms could be related to both the pancreatitis and biliary dyskinesia. I also expressed to him alternatives to surgery as this is not a surgical emergency at this time. Patient says that he would like to think about if he wants to proceed with surgery this admission. If patient decides to have surgery this admission will need to have clinical signs that his pancreatitis is improving. Also discussed with patient how to improve his overall condition he should strongly consider alcohol and smoking cessation. 1. Recheck lipase level in a.m. 2. Can start on clear liquids as tolerated 3. We will continue to follow
--- NOTE | 2020-09-29 09:43 | Progress Note ---
Assessment and Plan Assessment and plan: (1) Acute cholecystitis Current Visit: Yes Status: Acute Plan to address problem: Admit the patient to the medical floor. N.p.o. D5 half-normal saline at the rate of 100 cc/h. Pepcid 20 mg IV every 12 hours. Zosyn 4.5 g IV every 8 hours. Zofran 4 mg IV every 6 hours as needed. Will consult surgery for e valuation. Recheck CBC CMP in the morning (2) Acute pancreatitis Current Visit: Yes Status: Acute Qualifiers: Pancreatitis type: alcohol induced Acute pancreatitis complication: unspecified Qualified Code(s): K85.20 - Alcohol induced acute pancreatitis without necrosis or infection Plan to address problem: N.p.o. D5 half-normal saline at the rate of 100 cc/h. Pepcid 20 mg IV every 12 hours. Zosyn 4.5 g IV every 8 hours. Zofran 4 mg IV every 6 hours as needed. Will consult surgery for evaluation. Recheck CBC CMP in the morning (3) Hypertension Current Visit: Yes Status: Acute Plan to address problem: Hydralazine 10 mg IV every 6 hours as needed. We will continue the home medication. Monitor blood pressure closely (4) Tobacco abuse Current Visit: Yes Status: Acute Plan to address problem: We counseled the patient quit his smoking. Nicotine patch 7 mg to the skin daily (5) Alcohol abuse Current Visit: Yes Status: Acute Plan to address problem: Counseled the patient regarding quit drinking. We put the patient on CIWA protocol. We also put the patient on banana bag daily (6) DVT prophylaxis Current Visit: Yes Status: Acute Plan to address problem: Heparin 5000 units subcu every 8 hours for DVT prophylaxis. Pepcid 20 mg IV every 12 hours for GI prophylaxis. Patient is a full code 09/29/2020 -Patient has acalculus cholecystitis, patient is on IV Zosyn and general surgery consulted. Patient has pancreatitis, will keep her n.p.o. Counseled about cessation of alcohol. Patient is on CIWA protocol for alcohol withdrawal DT. History Interval history: Patient was seen and evaluated this morning Patient is complaining right upper quadrant pain Hospitalist Physical - Physical exam Narrative exam: Not in cardiopulmonary distress. The patient appeared well nourished and normally developed. Vital signs as documented. Head exam is unremarkable. No scleral icterus . Neck is without jugular venous distension, thyromegaly, or carotid bruits. Lungs are clear to auscultation. Cardiac exam reveals regular rate and Rhythm. Abdominal exam reveals right upper quadrant tenderness. Extremities are nonedematous and both femoral and pedal pulses are normal. 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 No focal weakness. - Constitutional Vitals: Temp Pulse Resp BP Pulse Ox 98.2 F 86 18 163/114 99 09/28/20 12:07 09/29/20 09:40 09/29/20 09:40 09/28/20 12:07 09/29/20 09:41 General appearance: Present: no acute distress, well-nourished Results - Labs CBC & Chem 7: 09/29/20 03:50 09/29/20 03:50 Labs: Laboratory Last Values WBC 4.0 K/mm3 (4.5-11.0) L 09/29/20 03:50 RBC 3.97 M/mm3 (3.65-5.03) 09/29/20 03:50 Hgb 12.7 gm/dl (11.8-15.2) 09/29/20 03:50 Hct 37.6 % (35.5-45.6) 09/29/20 03:50 MCV 95 fl (84-94) H 09/29/20 03:50 MCH 32 pg (28-32) 09/29/20 03:50 MCHC 34 % (32-34) 09/29/20 03:50 RDW 13.2 % (13.2-15.2) 09/29/20 03:50 Plt Count 50 K/mm3 (140-440) L 09/29/20 03:50 Lymph % (Auto) 18.8 % (13.4-35.0) 09/29/20 03:50 [place] % (Auto) 11.2 % (0.0-7.3) H 09/29/20 03:50 Eos % (Auto) 2.3 % (0.0-4.3) 09/29/20 03:50 Baso % (Auto) 0.2 % (0.0-1.8) 09/29/20 03:50 Lymph # (Auto) 0.7 K/mm3 (1.2-5.4) L 09/29/20 03:50 [place] # (Auto) 0.4 K/mm3 (0.0-0.8) 09/29/20 03:50 Eos # (Auto) 0.1 K/mm3 (0.0-0.4) 09/29/20 03:50 Baso # (Auto) 0.0 K/mm3 (0.0-0.1) 09/29/20 03:50 Seg Neutrophils % 67.5 % (40.0-70.0) 09/29/20 03:50 Seg Neutrophils # 2.7 K/mm3 (1.8-7.7) 09/29/20 03:50 Sodium 139 mmol/L (137-145) 09/29/20 03:50 Potassium 3.6 mmol/L (3.6-5.0) 09/29/20 03:50 Chloride 102.5 mmol/L (98-107) 09/29/20 03:50 Carbon Dioxide 25 mmol/L (22-30) 09/29/20 03:50 Anion Gap 15 mmol/L 09/29/20 03:50 BUN 8 mg/dL (9-20) L 09/29/20 03:50 Creatinine 0.8 mg/dL (0.8-1.3) 09/29/20 03:50 Estimated GFR > 60 ml/min 09/29/20 03:50 BUN/Creatinine Ratio 10 % 09/29/20 03:50 Glucose 86 mg/dL (75-100) 09/29/20 03:50 Calcium 8.8 mg/dL (8.4-10.2) 09/29/20 03:50 Phosphorus 3.40 mg/dL (2.5-4.5) 09/28/20 21:45 Magnesium 1.90 mg/dL (1.7-2.3) 09/28/20 21:45 Total Bilirubin 1.20 mg/dL (0.1-1.2) 09/29/20 03:50 AST 23 units/L (5-40) 09/29/20 03:50 ALT 25 units/L (7-56) 09/29/20 03:50 Alkaline Phosphatase 100 units/L (35-129) 09/29/20 03:50 Total Protein 7.0 g/dL (6.3-8.2) 09/29/20 03:50 Albumin 3.4 g/dL (3.9-5) L 09/29/20 03:50 Albumin/Globulin Ratio 0.9 % 09/29/20 03:50 Lipase 517 units/L (13-60) H 09/28/20 15:35 Urine Color [place] (Yellow) 09/28/20 Unknown Urine Turbidity Clear (Clear) 09/28/20 Unknown Urine pH 5.0 (5.0-7.0) 09/28/20 Unknown Ur Specific Agency 1.024 (1.003-1.030) 09/28/20 Unknown Urine Protein 100 mg/dl mg/dL (Negative) 09/28/20 Unknown Urine Glucose (UA) Neg mg/dL (Negative) 09/28/20 Unknown Urine Ketones Neg mg/dL (Negative) 09/28/20 Unknown Urine Blood Neg (Negative) 09/28/20 Unknown Urine Nitrite Neg (Negative) 09/28/20 Unknown Urine Bilirubin Neg (Negative) 09/28/20 Unknown Urine Urobilinogen 2.0 mg/dL (<2.0) 09/28/20 Unknown Ur Leukocyte Esterase Neg (Negative) 09/28/20 Unknown Urine WBC (Auto) 1.0 /HPF (0.0-6.0) 09/28/20 Unknown Urine RBC (Auto) 2.0 /HPF (0.0-6.0) 09/28/20 Unknown U Epithel Cells (Auto) 1.0 /HPF (0-13.0) 09/28/20 Unknown Urine Mucus 3+ /HPF 09/28/20 Unknown Active Medications - Current Medications Current Medications: Generic Name Dose Route Start Last Admin Trade Name Catalinoq PRN Reason Stop Dose Admin Acetaminophen 650 mg 09/28/20 21:34 Acetaminophen 325 Mg Tab PO Q4H PRN Pain MILD(1-3)/Fever >100.5/SEBASTIAN Albuterol 2.5 mg 09/28/20 21:34 Albuterol 2.5 Mg/3 Ml Nebu IH Q4HRT PRN Shortness Of Breath Albuterol/Ipratropium 1 ampul 09/29/20 02:00 09/29/20 09:36 Ipratropium/Albuterol Sulfate 3 Ml Ampul.Neb IH 1 ampul Q6HRT SHARON Administration Dexamethasone 4 mg 09/28/20 21:37 Dexamethasone 4 Mg Tab PO Q12H PRN allergic reaction Diphenhydramine HCl 25 mg 09/28/20 21:37 Diphenhydramine 25 Mg Cap PO Q6HR PRN itching allergies Epinephrine HCl 0.3 mg 09/28/20 21:48 Epinephrine/Pf 1 Mg/1 Ml Inj IV PRN PRN Severe allergic reaction Famotidine 20 mg 09/28/20 22:00 09/28/20 23:07 Famotidine 20 Mg/2 Ml Inj IV 20 mg BID SHARON Administration Heparin Sodium (Porcine) 5,000 unit 09/28/20 22:00 09/29/20 06:04 Heparin 5,000 Unit/1 Ml Vial SUB-Q 5,000 unit Q8HR SHARON Administration Hydralazine HCl 10 mg 09/28/20 21:49 Hydralazine 20 Mg/1 Ml Inj IV Q6H PRN Blood Pressure Dextrose/Sodium Chloride 1,000 mls @ 100 mls/hr 09/28/20 22:00 D5/0.45ns IV DIRECT SH[facility]ON Piperacillin Sod/Tazobactam Sod 4.5 gm in 100 mls @ 200 mls/hr 09/28/20 22:00 09/29/20 06:00 Zosyn/Ns 4.5gm/100ml IV 200 mls/hr Q8H SH[facility]ON Administration Protocol Lorazepam 2 mg 09/28/20 21:34 Lorazepam 2 Mg/Ml Vial IV Q1H PRN CIWA-Ar 8-15 Morphine Sulfate 2 mg 09/28/20 21:34 Morphine 2 Mg/1 Ml Inj IV Q4H PRN Pain, Moderate (4-6) Ondansetron HCl 4 mg 09/28/20 21:34 Ondansetron 4 Mg/2 Ml Inj IV Q8H PRN Nausea And Vomiting Sodium Chloride 10 ml 09/28/20 22:00 09/28/20 23:08 Sodium Chloride 0.9% 10 Ml Flush Syringe IV 10 ml BID SHARON Administration Sodium Chloride 10 ml 09/28/20 21:34 Sodium Chloride 0.9% 10 Ml Flush Syringe IV PRN PRN LINE FLUSH Triamcinolone Acetonide 1 applic 09/28/20 22:00 09/29/20 05:57 Triamcinolone 0.1% Cream 15 Gm TP Not Given BID SHARON
[2020-09-29] MEDS: FAMOTIDINE 20 MG/2 ML INJ IV SCH ×2 (10:38→21:49)
--- NOTE | 2020-09-29 15:41 | Nuclear Medicine Report ---
HIDA SCAN INDICATION: RUQ pain TECHNIQUE: 5.2 mCi of Tc-99m mebrofenin was injected IV per protocol. The patient drank 8 oz of ens ure. Multiple planar images in the region of the liver were then obtained. FINDINGS: There is prompt radiotracer uptake identified within the liver. The gallbladder was visuali zed at 20 min. There is normal GI excretion. The gallbladder ejection fraction was measured at 5 % ( 35% or greater is considered normal). IMPRESSION: No evidence of biliary obstruction. Severely decreased gallbladder ejection fraction. Consider biliary dyskinesia. Signer Name: Luc Beach Jr, MD Signed: 09/29/2020 3:37 PM Workstation Name: [id number]
[2020-09-29] MEDS ORDERED: PIPERACIL/TAZOBACTA 4.5/NS 100 4.5 GM/100 ML VIAL IV SCH (16:00)
[2020-09-30] MEDS: IPRATROPIUM/ALBUTEROL SULFATE 3 ML AMPUL.NEB IH SCH ×2 (02:32→09:14)
--- NOTE | 2020-09-30 09:33 | Progress Note ---
Assessment and Plan Assessment and plan: (1) Acute cholecystitis Current Visit: Yes Status: Acute Plan to address problem: Admit the patient to the medical floor. N.p.o. D5 half-normal saline at the rate of 100 cc/h. Pepcid 20 mg IV every 12 hours. Zosyn 4.5 g IV every 8 hours. Zofran 4 mg IV every 6 hours as needed. Will consult surgery for e valuation. Recheck CBC CMP in the morning (2) Acute pancreatitis Current Visit: Yes Status: Acute Qualifiers: Pancreatitis type: alcohol induced Acute pancreatitis complication: unspecified Qualified Code(s): K85.20 - Alcohol induced acute pancreatitis without necrosis or infection Plan to address problem: N.p.o. D5 half-normal saline at the rate of 100 cc/h. Pepcid 20 mg IV every 12 hours. Zosyn 4.5 g IV every 8 hours. Zofran 4 mg IV every 6 hours as needed. Will consult surgery for evaluation. Recheck CBC CMP in the morning (3) Hypertension Current Visit: Yes Status: Acute Plan to address problem: Hydralazine 10 mg IV every 6 hours as needed. We will continue the home medication. Monitor blood pressure closely (4) Tobacco abuse Current Visit: Yes Status: Acute Plan to address problem: We counseled the patient quit his smoking. Nicotine patch 7 mg to the skin daily (5) Alcohol abuse Current Visit: Yes Status: Acute Plan to address problem: Counseled the patient regarding quit drinking. We put the patient on CIWA protocol. We also put the patient on banana bag daily (6) DVT prophylaxis Current Visit: Yes Status: Acute Plan to address problem: Heparin 5000 units subcu every 8 hours for DVT prophylaxis. Pepcid 20 mg IV every 12 hours for GI prophylaxis. Patient is a full code 09/29/2020 -Patient has acalculus cholecystitis, patient is on IV Zosyn and general surgery consulted. Patient has pancreatitis, will keep her n.p.o. Counseled about cessation of alcohol. Patient is on CIWA protocol for alcohol withdrawal DT. 09/30; general surgery saw the patient and recommend outpatient elective laparo scopic cholecystectomy. If patient tolerated full liquid diet patient can go home. Pain subsided. History Interval history: Patient was seen and evaluated this morning Patient's pain subsided Hospitalist Physical - Physical exam Narrative exam: Not in cardiopulmonary distress. The patient appeared well nourished and normally developed. Vital signs as documented. Head exam is unremarkable. No scleral icterus . Neck is without jugular venous distension, thyromegaly, or carotid bruits. Lungs are clear to auscultation. Cardiac exam reveals regular rate and Rhythm. Abdominal exam tender. Extremities are nonedematous and both femoral and pedal pulses are normal. 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 No focal weakness. - Constitutional Vitals: Temp Pulse Resp BP Pulse Ox 98.2 F 88 19 163/114 97 09/28/20 12:07 09/30/20 02:00 09/30/20 02:00 09/28/20 12:07 09/30/20 09:18 General appearance: Present: no acute distress, well-nourished Results - Labs CBC & Chem 7: 09/29/20 03:50 09/29/20 03:50 Labs: Laboratory Last Values WBC 4.0 K/mm3 (4.5-11.0) L 09/29/20 03:50 RBC 3.97 M/mm3 (3.65-5.03) 09/29/20 03:50 Hgb 12.7 gm/dl (11.8-15.2) 09/29/20 03:50 Hct 37.6 % (35.5-45.6) 09/29/20 03:50 MCV 95 fl (84-94) H 09/29/20 03:50 MCH 32 pg (28-32) 09/29/20 03:50 MCHC 34 % (32-34) 09/29/20 03:50 RDW 13.2 % (13.2-15.2) 09/29/20 03:50 Plt Count 50 K/mm3 (140-440) L 09/29/20 03:50 Lymph % (Auto) 18.8 % (13.4-35.0) 09/29/20 03:50 [place] % (Auto) 11.2 % (0.0-7.3) H 09/29/20 03:50 Eos % (Auto) 2.3 % (0.0-4.3) 09/29/20 03:50 Baso % (Auto) 0.2 % (0.0-1.8) 09/29/20 03:50 Lymph # (Auto) 0.7 K/mm3 (1.2-5.4) L 09/29/20 03:50 [place] # (Auto) 0.4 K/mm3 (0.0-0.8) 09/29/20 03:50 Eos # (Auto) 0.1 K/mm3 (0.0-0.4) 09/29/20 03:50 Baso # (Auto) 0.0 K/mm3 (0.0-0.1) 09/29/20 03:50 Seg Neutrophils % 67.5 % (40.0-70.0) 09/29/20 03:50 Seg Neutrophils # 2.7 K/mm3 (1.8-7.7) 09/29/20 03:50 Sodium 139 mmol/L (137-145) 09/29/20 03:50 Potassium 3.6 mmol/L (3.6-5.0) 09/29/20 03:50 Chloride 102.5 mmol/L (98-107) 09/29/20 03:50 Carbon Dioxide 25 mmol/L (22-30) 09/29/20 03:50 Anion Gap 15 mmol/L 09/29/20 03:50 BUN 8 mg/dL (9-20) L 09/29/20 03:50 Creatinine 0.8 mg/dL (0.8-1.3) 09/29/20 03:50 Estimated GFR > 60 ml/min 09/29/20 03:50 BUN/Creatinine Ratio 10 % 09/29/20 03:50 Glucose 86 mg/dL (75-100) 09/29/20 03:50 Calcium 8.8 mg/dL (8.4-10.2) 09/29/20 03:50 Phosphorus 3.40 mg/dL (2.5-4.5) 09/28/20 21:45 Magnesium 1.90 mg/dL (1.7-2.3) 09/28/20 21:45 Total Bilirubin 1.20 mg/dL (0.1-1.2) 09/29/20 03:50 AST 23 units/L (5-40) 09/29/20 03:50 ALT 25 units/L (7-56) 09/29/20 03:50 Alkaline Phosphatase 100 units/L (35-129) 09/29/20 03:50 Total Protein 7.0 g/dL (6.3-8.2) 09/29/20 03:50 Albumin 3.4 g/dL (3.9-5) L 09/29/20 03:50 Albumin/Globulin Ratio 0.9 % 09/29/20 03:50 Lipase 517 units/L (13-60) H 09/28/20 15:35 Urine Color [place] (Yellow) 09/28/20 Unknown Urine Turbidity Clear (Clear) 09/28/20 Unknown Urine pH 5.0 (5.0-7.0) 09/28/20 Unknown Ur Specific [place] 1.024 (1.003-1.030) 09/28/20 Unknown Urine Protein 100 mg/dl mg/dL (Negative) 09/28/20 Unknown Urine Glucose (UA) Neg mg/dL (Negative) 09/28/20 Unknown Urine Ketones Neg mg/dL (Negative) 09/28/20 Unknown Urine Blood Neg (Negative) 09/28/20 Unknown Urine Nitrite Neg (Negative) 09/28/20 Unknown Urine Bilirubin Neg (Negative) 09/28/20 Unknown Urine Urobilinogen 2.0 mg/dL (<2.0) 09/28/20 Unknown Ur Leukocyte Esterase Neg (Negative) 09/28/20 Unknown Urine WBC (Auto) 1.0 /HPF (0.0-6.0) 09/28/20 Unknown Urine RBC (Auto) 2.0 /HPF (0.0-6.0) 09/28/20 Unknown U Epithel Cells (Auto) 1.0 /HPF (0-13.0) 09/28/20 Unknown Urine Mucus 3+ /HPF 09/28/20 Unknown Active Medications - Current Medications Current Medications: Generic Name Dose Route Start Last Admin Trade Name Freq PRN Reason Stop Dose Admin Acetaminophen 650 mg 09/28/20 21:34 Acetaminophen 325 Mg Tab PO Q4H PRN Pain MILD(1-3)/Fever >100.5/SEBASTIAN Albuterol 2.5 mg 09/28/20 21:34 Albuterol 2.5 Mg/3 Ml Nebu IH Q4HRT PRN Shortness Of Breath Dexamethasone 4 mg 09/28/20 21:37 Dexamethasone 4 Mg Tab PO Q12H PRN allergic reaction Diphenhydramine HCl 25 mg 09/28/20 21:37 Diphenhydramine 25 Mg Cap PO Q6HR PRN itching allergies Epinephrine HCl 0.3 mg 09/28/20 21:48 Epinephrine/Pf 1 Mg/1 Ml Inj IV PRN PRN Severe allergic reaction Famotidine 20 mg 09/28/20 22:00 09/29/20 21:49 Famotidine 20 Mg/2 Ml Inj IV 20 mg BID SHARON Administration Heparin Sodium (Porcine) 5,000 unit 09/28/20 22:00 09/29/20 21:49 Heparin 5,000 Unit/1 Ml Vial SUB-Q 5,000 unit Q8HR SHARON Administration Hydralazine HCl 10 mg 09/28/20 21:49 Hydralazine 20 Mg/1 Ml Inj IV Q6H PRN Blood Pressure Dextrose/Sodium Chloride 1,000 mls @ 100 mls/hr 09/28/20 22:00 D5/0.45ns IV DIRECT SHARON Piperacillin Sod/Tazobactam Sod 4.5 gm in 100 mls @ 200 mls/hr 09/28/20 22:00 09/29/20 21:48 Zosyn/Ns 4.5gm/100ml IV 200 mls/hr Q8H SHARON Administration Protocol Lorazepam 2 mg 09/28/20 21:34 Lorazepam 2 Mg/Ml Vial IV Q1H PRN CIWA-Ar 8-15 Morphine Sulfate 2 mg 09/28/20 21:34 Morphine 2 Mg/1 Ml Inj IV Q4H PRN Pain, Moderate (4-6) Ondansetron HCl 4 mg 09/28/20 21:34 Ondansetron 4 Mg/2 Ml Inj IV Q8H PRN Nausea And Vomiting Sodium Chloride 10 ml 09/28/20 22:00 09/29/20 21:49 Sodium Chloride 0.9% 10 Ml Flush Syringe IV 10 ml BID SHARON Administration Sodium Chloride 10 ml 09/28/20 21:34 Sodium Chloride 0.9% 10 Ml Flush Syringe IV PRN PRN LINE FLUSH Triamcinolone Acetonide 1 applic 09/28/20 22:00 09/29/20 21:49 Triamcinolone 0.1% Cream 15 Gm TP Not Given BID SHARON
[2020-09-30] MEDS: HEPARIN 5,000 UNIT/1 ML VIAL SUB-Q SCH ×2 (10:12→13:15)
[2020-09-30] MEDS: FAMOTIDINE 20 MG/2 ML INJ IV SCH (10:19)
[2020-09-30] MEDS: PIPERACIL/TAZOBACTA 4.5/NS 100 4.5 GM/100 ML VIAL IV SCH (10:43)
[2020-09-30] MEDS ORDERED: PIPERACIL/TAZOBACTA 4.5/NS 100 4.5 GM/100 ML VIAL IV SCH (11:00)
[2020-09-30] MEDS: TRIAMCINOLONE 0.1% CREAM 15 GM TP SCH (11:23)
--- NOTE | 2020-09-30 13:45 | Progress Note ---
Assessment and Plan 35-year-old male with pancreatitis and biliary dyskinesia. Afebrile stable. Abdominal pain with nausea and vomiting has resolved. Repeat lipase pending. Discussed at length that he can have his gallbladder removed electively. Patient needs to focus on alcohol and smoking cessation to optimize his outcomes after surgery. At this time no acute surgical intervention is planned at this time. Patient was instructed to call the office for an outpatient consultation and outpatient scheduling for laparoscopic cholecystectomy. Patient expressed understanding of the risk and benefits. Subjective Date of service: 09/30/20 Patient Reports: Positive: tolerating liquids well. Negative: nausea, vomiting Narrative: No acute events overnight. Patient is tolerating his clear liquids without any nausea vomiting. Patient says that his pain has resolved. Objective Vital Signs - 12hr 09/30/20 09/30/20 09/30/20 02:00 09:15 09:18 Pulse Rate [ 88 Bilateral Throughout] Respiratory Rate Respiratory 19 Rate [Bilateral Throughout] O2 Sat by Pulse 97 97 Oximetry 09/30/20 09/30/20 10:22 11:18 Pulse Rate [ Bilateral Throughout] Respiratory 18 20 Rate Respiratory Rate [Bilateral Throughout] O2 Sat by Pulse 97 Oximetry - General physical appearance well developed, no distress, no pain - Respiratory normal expansion, normal respiratory effort - Abdomen soft, not tender, not rebound, not guarding, not rigid - Labs 09/29/20 03:50 09/29/20 03:50
[2020-09-30 16:11] VITALS: BP 149/105
[2020-09-30] MEDS ORDERED: hydrALAZINE 20 MG/1 ML INJ IV NR (16:13)
[2020-09-30] MEDS ORDERED: IBUPROFEN 800 MG TAB PO NR (16:14)
--- NOTE | 2020-09-30 18:00 | Discharge Summary ---
Providers - Providers Date of Admission: 09/28/20 21:34 Date of discharge: 09/30/20 Attending physician: HUMBERTO ISAAC MD 09/28/20 21:21 Consult to Physician [CONS] Urgent Comment: Consulting Provider: SUSAN JIMENEZ Physician Instructions: Reason For Exam: Acute cholecystitis Primary care physician: [employer] Hospitalization Reason for admission: cholecystitis, Acute pancreatitis Condition: Stable Hospital course: History of present illness: 35-year-old male with past medical history of hypertension, HIV alcohol abuse was brought to the emergency room because of nausea and vomiting and abdominal pain several days. Abdominal pain is cramping like an aching-like 8/10 right upper quadrant radiates to the right flank. patient stated last vomiting was yesterday. Patient describes vomiting as food content and yellow gastric acid. Patient denies chest pain, short of breath, fever, hemoptysis, blood in stool, chills, headache, stiff neck, numbness or tingling. In the emergency room patient lipase is 517. Abdominal ultrasound no showed positive sonographic Kinsey sign with mild gallbladder wall thickening and mild gallbladder distention without visualization of the stone suggesting acute acalculous cholecystitis. CBD at the upper normal limit of transverse diameter without sonographic evidence of choledocholithiasis Hospital course Patient was admitted to the floor and was treated for acute pancreatitis and also put on IV antibiotics for cholecystitis. Patient's abdominal pain subsided, lipase level trended down. Patient tolerated full liquid diet. Patient is doing well. Patient was evaluated by general surgery and given o ption to do cholecystectomy while in the hospital or to call back and make an appointment as an outpatient. Patient preferred to be seen as an outpatient for elective cholecystectomy discharged home in a stable condition. No antibiotics needed at the time of discharge. Disposition: DC- TO HOME OR SELFCARE Final Discharge Diagnosis (Prints w/discharge instructions): Acute pancreatitis. Acute cholecystitis Time spent for discharge: 35 minutes - Discharge Diagnoses (1) Acute cholecystitis Status: Acute (2) Acute pancreatitis Status: Acute Qualifiers: Pancreatitis type: alcohol induced Acute pancreatitis complication: unspecified Qualified Code(s): K85.20 - Alcohol induced acute pancreatitis without necrosis or infection (3) Alcohol abuse Status: Acute (4) Hypertension Status: Acute (5) Tobacco abuse Status: Acute Core Measure Documentation - Palliative Care Palliative Care/ Comfort Measures: Not Applicable - Core Measures Any of the following diagnoses?: none Exam - Physical Exam Narrative exam: Not in cardiopulmonary distress. The patient is obese. Vital signs as documented. Head exam is unremarkable. No scleral icterus . Neck is without jugular venous distension, thyromegaly, or carotid bruits. Lungs are clear to auscultation. Cardiac exam reveals regular rate and Rhythm. Abdominal exam nontender. Extremities are nonedematous and both femoral and pedal pulses are normal. [employer]: Alert and oriented 3. No focal weakness. - Constitutional Vitals: Temp Pulse Resp BP Pulse Ox 97.8 F 69 18 149/105 100 09/30/20 15:53 09/30/20 15:53 09/30/20 16:47 09/30/20 15:53 09/30/20 15:53 Plan Activity: no restrictions Weight Bearing Status: Full Weight Bearing Diet: low salt Follow up with: SHABBIR WILLIS MD [Primary Care Provider] - 7 Days SUSAN JIMENEZ MD [Staff Physician] - 14 Days
== END 2020-09-30 18:39 | disposition home or self-care (01) | DRG 444 ==
LOC: ED 11:45 → 3A 21:34 → 3B-SURG 09-29 21:49
PROVIDERS: ADMIT Hospitalist; ATTEND Internal Medicine
DX: K81.0 Acute cholecystitis (principal); K85.20 Alcohol induced acute pancreatitis without necrosis or infection; B20 Human immunodeficiency virus [HIV] disease; I10 Essential (primary) hypertension; F10.20 Alcohol dependence, uncomplicated; Z72.0 Tobacco use; Z79.899 Other long term (current) drug therapy; Z79.891 Long term (current) use of opiate analgesic; Z79.01 Long term (current) use of anticoagulants; E66.9 Obesity, unspecified
CPT/HCPCS: 36415; 74022; 76700; 76705; 78226; 80053; 81001; 83690; 83735; 84100; 85025; 94640; 94644; G0378; A9537; J0360; J1644; J1956; J2270; J2405; J2543; J3411; J7030